=== PATIENT | male | born 1970 | race Caucasian/White ===

== ENCOUNTER 2018-08-25 12:38 | Emergency (ER) | payer BC ==
[~2018-08-25] VITALS: Ht 182.9 cm; Wt 97.5 kg
--- NOTE | 2018-08-25 12:49 | NUR ---
ED Nurse Note: pt walked in due to right earache started 1 week ago, pt stated he is putting swimmer's ear ear drop 3 days ago and not giving any help. pt is complaining of 10/10 pain, ringing sensation, pt not complaining of balance problem. will continue to monitor.
[2018-08-25 12:51] VITALS: BP 126/84
--- NOTE | 2018-08-25 13:02 | Emergency Room Report ---
History of Present Illness General Chief Complaint: Earache Source: Patient Present Illness HPI 47-year-old male with history of recurrent otitis media here complaining of right ear pain x2 days. Patient reports that he has been applying swimmer's ears drops in his ear with no improvement. Also has been using Q-tips and cotton balls to clear the pus drainage. Patient is rating the pain 10 out of 10 without radiation denying jaw numbness and headache. Denies fever and chills , nausea vomiting, chest pain, shortness of breath, palpitation, and all other URI symptoms. Patient reports that he has an upcoming appointment with ear nose throat doctor next week Allergies: Coded Allergies: No Known Allergies (Unverified , 08/25/18) Patient History Past Medical History: see triage record Past Surgical History: unable to obtain Pertinent Family History: none Immunizations: UTD Reviewed Nursing Documentation: PMH: Agreed; PSxH: Agreed Nursing Documentation-PMH Past Medical History: No Stated History Review of Systems All Other Systems: negative except mentioned in HPI Physical Exam Vital Signs Date Time Temp Pulse Resp B/P (MAP) Pulse Ox O2 Delivery O2 Flow Rate FiO2 08/25/18 12:42 98.1 70 20 126/84 (98) 98 Room Air Sp02 EP Interpretation: reviewed, normal General Appearance: normal inspection, well appearing, no apparent distress, alert, GCS 15 Head: normocephalic, atraumatic Eyes: bilateral eye normal inspection, bilateral eye PERRL ENT: hearing grossly normal, normal pharynx, other - Right TM bulging with pus drainage , tragus and pinna not tender to palpation Neck: normal inspection, full range of motion, supple, thyroid normal Respiratory: normal inspection, chest non-tender, lungs clear, normal breath sounds, no respiratory distress, no retraction, no accessory muscle use, no wheezing Cardiovascular #1: normal inspection, regular rate, rhythm, no edema, no murmur Gastrointestinal: normal inspection, non tender, soft Rectal: deferred Musculoskeletal: normal inspection, digits/nails normal, gait/station normal Neurologic: normal inspection, alert, oriented x3, responsive Psychiatric: normal inspection, judgement/insight normal Skin: normal inspection, normal color, no rash, warm/dry Lymphatic: normal inspection, no adenopathy Medical Decision Making PA Attestation All my diagnosis and treatment plans were reviewed ad discussed with my supervising physician Dr. Rodriguez Diagnostic Impression: Primary Impression: Otitis media ER Course 47-year-old male with history of recurrent otitis media here complaining of right ear pain x2 days. Patient reports that he has been applying swimmer's ears drops in his ear with no improvement. Also has been using Q-tips and cotton balls to clear the pus drainage. Patient is rating the pain 10 out of 10 without radiation denying jaw numbness and headache. Denies fever and chills , nausea vomiting, chest pain, shortness of breath, palpitation, and all other URI symptoms. Patient reports that he has an upcoming appointment with ear nose throat doctor next week Ddx considered but are not limited to: strep pharyngitis, URI, tonsilitis, peritonsillar absacess, influneza, otitis media, otitis externa Vital signs: are WNL, pt. is afebrile H&PE are most consistent with: otitis media ORDERS: Augmentin, naproxen ED INTERVENTIONS: None required at this time. DISCHARGE: At this time pt. is stable for d/c to home. Will provide printed patient care instructions, and any necessary prescriptions. Care plan and follow up instructions have been discussed with the patient prior to discharge. Follow-up with a primary care provider for referral to ear nose throat doctor avoid getting the affected area wet avoid using Q-tips inside your affected ear Last Vital Signs Date Time Temp Pulse Resp B/P (MAP) Pulse Ox O2 Delivery O2 Flow Rate FiO2 08/25/18 12:51 98.1 82 20 126/84 98 Room Air Disposition: HOME, SELF-CARE Condition: Stable Scripts Naproxen* (NAPROXEN*) 500 Mg Tablet 500 MG ORAL TWICE A DAY, #30 TAB Prov: Eliezer Albarran 08/25/18 Amoxicillin/Potassium Clav 875-125* (AUGMENTIN 875-125 TABLET*) 1 Each Tablet 1 TAB ORAL TWICE A DAY for 10 Days, #20 TAB Prov: Eliezer Albarran 08/25/18 Patient Instructions: Otitis Media, Adult, [id number] Additional Instructions: Follow-up with a primary care provider for referral to ear nose throat doctor avoid using Q-tips and cotton balls in your ear take medication as directed Eliezer Albarran Aug 25, 2018 13:02
[2018-08-25] MEDS ORDERED: AUGMENTIN 875-1 EAC1 ORAL (13:03)
[2018-08-25] MEDS ORDERED: NAPROXEN500 M2 ORAL (13:03)
[2018-08-25 13:10] VITALS: BP 125/75
--- NOTE | 2018-08-25 13:10 | NUR ---
ER DISCHARGE NOTE: Patient is cleared to be discharged per ERMD, pt is aox4, on room air, with stable vital signs. pt was given dc and prescription instructions, pt was able to verbalize understanding, pt id band removed without complications. pt is able to ambulate with steady gait. pt took all belongings.
== END 2018-08-25 13:10 | disposition home or self-care (01) ==
LOC: EMR 13:00
DX: H66.91 Otitis media, unspecified, right ear (principal)
CPT/HCPCS: 99282